=== PATIENT | female | born 1965 | race Caucasian/White ===

== ENCOUNTER 2018-06-12 14:16 | Emergency (ER) | payer OTHER ==
[2018-06-12 14:24] VITALS: BP 153/105; TEMP 99.4; BMI 30.9
[2018-06-12] MEDS ORDERED: ACETAMINOPHEN 500 MG TABLET (FP) PO ONE (14:37)
[2018-06-12] MEDS ORDERED: ACETAMINOPHEN 500 MG TABLET (FP) ONE (14:46)
--- NOTE | 2018-06-12 15:11 | PDOC ---
History of Present Illness - General Chief Complaint: Cold Symptoms Stated Complaint: FEVER & BODY ACHES Time Seen by Provider: 06/12/18 14:31 History Source: Patient Exam Limitations: No Limitations - History of Present Illness Initial Comments: 06/12/18 15:07 Patient is a 52F with history of asthma here today complaining of 1 day of fever , cough, rhinorrhea, and bodyaches. Patient reports a subjective fever at home. Denies nausea, vomiting. Endorses some chest and back pain with coughing. Denies shortness of breath. Denies sick contacts. Took theraflu last night, nothing today. Past History - Past Medical History Allergies/Adverse Reactions: Allergies Allergy/AdvReac Type Severity Reaction Status Date / Time No Known Allergies Allergy Verified 06/12/18 14:21 Home Medications: Ambulatory Orders Diphenhydra/Phenyleph/Acetamin [Theraflu Expressmax Cold Nt Lq] 1 tbs PO ONCE Anemia: No Asthma: No Cancer: No Cardiac Disorders: No CVA: No COPD: No CHF: No Dementia: No Diabetes: No GI Disorders: No Disorders: No HTN: No Hypercholesterolemia: No Liver Disease: No Seizures: No Thyroid Disease: No - Surgical History Abdominal Surgery: Yes (TUMMY TUCK) Appendectomy: Yes Cardiac Surgery: No Cholecystectomy: Yes Lung Surgery: No Neurologic Surgery: No Orthopedic Surgery: No - Immunization History Immunization Up to Date: Yes - Suicide/Smoking/Psychosocial Hx Smoking Status: No Smoking History: Never smoked Have you smoked in the past 12 months: No Number of Cigarettes Smoked Daily: 0 Hx Alcohol Use: No Drug/Substance Use Hx: No Substance Use Type: None Hx Substance Use Treatment: No Review of Systems - Review of Systems Comments:: 06/12/18 15:09 GENERAL/CONSTITUTIONAL: +fever +chills. No weakness. HEAD, EYES, EARS, NOSE AND THROAT: No change in vision. No sore throat. CARDIOVASCULAR: No chest pain or shortness of breath RESPIRATORY: + cough, no wheezing, or hemoptysis. GASTROINTESTINAL: No nausea, vomiting, diarrhea or constipation. GENITOURINARY: No dysuria, frequency, or change in urination. MUSCULOSKELETAL: + diffuse body aches. No neck or back pain. SKIN: No rash NEUROLOGIC: No headache, vertigo, loss of consciousness, or change in strength/ sensation. ENDOCRINE: No increased thirst. No abnormal weight change HEMATOLOGIC/LYMPHATIC: No anemia, easy bleeding, or history of blood clots. ALLERGIC/IMMUNOLOGIC: No hives or skin allergy. *Physical Exam - Vital Signs Last Vital Signs Temp Pulse Resp BP Pulse Ox 99.4 F 105 H 16 153/105 97 06/12/18 14:17 06/12/18 14:17 06/12/18 14:17 06/12/18 14:17 06/12/18 14:17 - Physical Exam Comments: 06/12/18 15:09 GENERAL: Awake, alert, and fully oriented, in no acute distress, coughing HEAD: No signs of trauma, normocephalic, atraumatic EYES: PERRLA, EOMI, sclera anicteric, conjunctiva clear ENT: Auricles normal inspection, hearing grossly normal, nares patent, oropharynx clear without exudates. Moist mucosa NECK: Normal ROM, supple, no lymphadenopathy, JVD, or masses LUNGS: No distress, speaks full sentences, clear to auscultation bilaterally HEART: Regular rate and rhythm, normal S1 and S2, no murmurs, rubs or gallops, peripheral pulses normal and equal bilaterally. ABDOMEN: Soft, nontender, normoactive bowel sounds. No guarding, no rebound. No masses EXTREMITIES: Normal inspection, Normal range of motion, no edema. No clubbing or cyanosis. NEUROLOGICAL: Cranial nerves II through XII grossly intact. Normal speech, normal gait, no focal sensorimotor deficits SKIN: Warm, Dry, normal turgor, no rashes or lesions noted. ED Treatment Course - RADIOLOGY Radiology Studies Ordered: Category Date Time Status CHEST X-RAY PORTABLE* [RAD] Stat Radiology 06/12/18 14:45 Taken - Medications Given in the ED: ED Medications Discontinued Medications Generic Name Dose Route Start Last Admin Trade Name Freq PRN Reason Stop Dose Admin Acetaminophen 975 mg 06/12/18 14:37 06/12/18 14:45 Tylenol - PO 06/12/18 14:38 975 mg ONCE ONE Administration Medical Decision Making - Medical Decision Making 06/12/18 15:10 Patient is 52F with history of asthma with fever, cough, bodyaches, rhinorrhea. Vital signs notable for HR of 104, likely febrile given oral temp of 99.4. Patient subjectively appears well. Suspect viral syndrome, will evaluate for pneumonia. Rapid flu sent. Given tylenol and PO hydration. 06/12/18 16:03 Flu negative. Patient improved. CXR negative for acute cardiopulmonary process. Will discharge. Given return precautions. Expressed understanding. *DC/Admit/Observation/Transfer Diagnosis at time of Disposition: Viral syndrome - Discharge Dispostion Disposition: HOME Condition at time of disposition: Good Decision to Admit order: No - Referrals Referrals: Wolfgang Sales MD [Primary Care Provider] - - Patient Instructions Printed Discharge Instructions: DI for Common Cold Additional Instructions: Please return if you have any new, worsening or concerning symptoms. Please follow up with your primary care doctor this week. - Post Discharge Activity Forms/Work/School Notes: Back to Work
[2018-06-12 16:09] VITALS: PULSE 85
== END 2018-06-12 16:13 | disposition home or self-care (01) ==
LOC: FER 14:16
DX: B34.9 Viral infection, unspecified (principal)
CPT/HCPCS: 71045-TC-FY; 87804; 99282-25

== ENCOUNTER 2019-08-23 19:15 | Emergency (ER) | payer OTHER ==
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
[2019-08-23 19:37] VITALS: BP 151/94; PULSE 82; TEMP 98.2; BMI 30.9
[2019-08-23] MEDS ORDERED: KETOROLAC TROMETHAMINE 60 MG/2 ML VIAL IM ONE (20:26)
[2019-08-23] MEDS ORDERED: KETOROLAC TROMETHAMINE 60 MG/2 ML VIAL ONE (20:28)
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
== END 2019-08-23 20:34 | disposition home or self-care (01) ==
LOC: JERFT 19:15 → JER 19:15 → JERFT 20:34
PROC: 3E0233Z Introduction of Anti-inflammatory into Muscle, Percutaneous Approach (ICD-10-PCS; principal; 2019-08-23)
DX: S16.1XXA Strain of muscle, fascia and tendon at neck level, initial encounter (principal); S39.012A Strain of muscle, fascia and tendon of lower back, initial encounter; X50.9XXA Other and unspecified overexertion or strenuous movements or postures, initial encounter; Y93.89 Activity, other specified; Y92.538 Other ambulatory health services establishments as the place of occurrence of the external cause; Y99.8 Other external cause status; E11.9 Type 2 diabetes mellitus without complications; Z79.84 Long term (current) use of oral hypoglycemic drugs
CPT/HCPCS: 99281-25